=== PATIENT | male | born 1960 | race Caucasian/White ===

== ENCOUNTER → 2016-11-17 | Outpatient (CLI) | payer OTHER ==
[2016-11-17 13:40] LABS: BASO % 0.3 %; BASO ABS # 0.02 K/uL (0-0.2); COMPLETE YES; EOS % 0.7 %; IG% 0.3 %; LYMPH % 25.9 %; LYMPH ABS # 1.81 K/uL (1.2-3.4); MEAN CELL VOLUME 86.6 fL (80-100); MEAN CORPUSCULAR HEMOGLOBIN 30.3 pg (25-34); MEAN PLATELET VOLUME 10.8 fL (7.4-10.4); MONO % 5.6 %; NEUT % 67.2 %; PLATELET COUNT 174 K/uL (130-400); RED BLOOD COUNT 5.08 M/uL (4.7-6.1)
[2016-11-17 13:57] LABS: CHOLESTEROL/HDL RATIO 3.3; PROSTATE SPECIFIC ANTIGEN 1.06 ng/ml (0.000-4.000)
== END | disposition home or self-care (01) ==
LOC: C.LABBC 11:38
PROVIDERS: ATTEND Internal Medicine
DX: H61.23 Impacted cerumen, bilateral (principal)

== ENCOUNTER → 2017-05-13 | Outpatient (CLI) | payer OTHER ==
[2017-05-13 13:31] LABS: BASO % 0.4 %; BASO ABS # 0.02 K/uL (0-0.2); COMPLETE YES; EOS % 1.9 %; HEMATOCRIT 43.7 % (42-52); IG% 0.2 %; LYMPH % 32.3 %; LYMPH ABS # 1.73 K/uL (1.2-3.4); MEAN CELL VOLUME 87.2 fL (80-100); MEAN CORPUSCULAR HEMOGLOBIN 30.1 pg (25-34); MEAN CORPUSCULAR HGB CONC 34.6 g/dl (32-36); MEAN PLATELET VOLUME 10.9 fL (7.4-10.4); MONO % 7.5 %; NEUT % 57.7 %; PLATELET COUNT 164 K/uL (130-400); RED BLOOD COUNT 5.01 M/uL (4.7-6.1); WHITE BLOOD COUNT 5.36 K/uL (4.8-10.8)
[2017-05-13 13:46] LABS: CHOLESTEROL/HDL RATIO 3.5
[2017-05-13 14:40] LABS: ESTIMATED AVERAGE GLUCOSE 120 mg/dl; HA1C FLAG Normal (Normal)
== END | disposition home or self-care (01) ==
LOC: C.LABBC 11:09
PROVIDERS: ATTEND Internal Medicine
DX: E78.00 Pure hypercholesterolemia, unspecified (principal)

== ENCOUNTER → 2017-11-24 | Outpatient (CLI) | payer OTHER ==
[2017-11-24 13:35] LABS: BASO % 0.2 %; BASO ABS # 0.01 K/uL (0-0.2); EOS % 1.6 %; HEMOGLOBIN 15.7 g/dL (14.0-18.0); IG# 0.01 K/uL (0.00-0.02); LYMPH % 29.9 %; LYMPH ABS # 1.89 K/uL (1.2-3.4); MEAN CELL VOLUME 87.7 fL (80-100); MEAN CORPUSCULAR HEMOGLOBIN 30.6 pg (25-34); MEAN CORPUSCULAR HGB CONC 34.9 g/dl (32-36); MEAN PLATELET VOLUME 10.8 fL (7.4-10.4); MONO % 10.3 %; MONO ABS # 0.65 K/uL (0.11-0.59); NEUT % 57.8 %; NEUT ABS # 3.66 K/uL (1.4-6.5); PLATELET COUNT 184 K/uL (130-400); RED CELL DISTRIBUTION WIDTH CV 12.8 % (11.5-14.5); RED CELL DISTRIBUTION WIDTH SD 41.3 fL (36.4-46.3); WHITE BLOOD COUNT 6.32 K/uL (4.8-10.8)
[2017-11-24 14:03] LABS: HEMOGLOBIN A1C 5.9 % (4.5-5.6)
[2017-11-24 14:27] LABS: ALT/SGPT 49 U/L (12-78); AST/SGOT 39 U/L (15-37); BLOOD UREA NITROGEN 25 mg/dl (7-18); CALCIUM 8.7 mg/dl (8.5-10.1); CARBON DIOXIDE 27 mmol/L (21-32); GLUCOSE 95 mg/dl (70-99); POTASSIUM 4.5 mmol/L (3.5-5.1); SODIUM 137 mmol/L (136-145)
[2017-11-24 14:30] LABS: CHOLESTEROL 190 mg/dl (0-200); LDL CHOLESTEROL CALCULATED 122 mg/dl
== END | disposition home or self-care (01) ==
LOC: C.LABBC 09:48
PROVIDERS: ATTEND Internal Medicine
DX: E78.00 Pure hypercholesterolemia, unspecified (principal)

== ENCOUNTER → 2018-02-28 | Outpatient (CLI) | payer OTHER | END | disposition home or self-care (01) | LOC: C.LABBC 10:15 | PROVIDERS: ATTEND Internal Medicine | DX: R97.20 Elevated prostate specific antigen [PSA] (principal) ==

== ENCOUNTER → 2018-05-24 | Outpatient (CLI) | payer OTHER ==
[2018-05-24 12:54] LABS: BASO % 0.2 %; BASO ABS # 0.01 K/uL (0-0.2); EOS % 1.1 %; EOS ABS # 0.05 K/uL (0-0.5); HEMATOCRIT 43.5 % (42-52); IG# 0.01 K/uL (0.00-0.02); LYMPH % 35.7 %; LYMPH ABS # 1.64 K/uL (1.2-3.4); MEAN CELL VOLUME 87.3 fL (80-100); MEAN CORPUSCULAR HEMOGLOBIN 30.1 pg (25-34); MEAN CORPUSCULAR HGB CONC 34.5 g/dl (32-36); MEAN PLATELET VOLUME 10.9 fL (7.4-10.4); MONO % 5.2 %; MONO ABS # 0.24 K/uL (0.11-0.59); NEUT % 57.6 %; NEUT ABS # 2.64 K/uL (1.4-6.5); PLATELET COUNT 177 K/uL (130-400); RED CELL DISTRIBUTION WIDTH CV 12.5 % (11.5-14.5); RED CELL DISTRIBUTION WIDTH SD 40.3 fL (36.4-46.3); WHITE BLOOD COUNT 4.59 K/uL (4.8-10.8)
[2018-05-24 13:34] LABS: HEMOGLOBIN A1C 5.9 % (4.5-5.6)
[2018-05-24 13:36] LABS: ALT/SGPT 43 U/L (12-78); AST/SGOT 36 U/L (15-37); BLOOD UREA NITROGEN 35 mg/dl (7-18); CALCIUM 9.1 mg/dl (8.5-10.1); CARBON DIOXIDE 25 mmol/L (21-32); CHOLESTEROL 176 mg/dl (0-200); CREATININE 1.14 mg/dl (0.60-1.40); GLUCOSE 84 mg/dl (70-99); LDL CHOLESTEROL CALCULATED 109 mg/dl; POTASSIUM 4.4 mmol/L (3.5-5.1); SODIUM 142 mmol/L (136-145)
== END | disposition home or self-care (01) ==
LOC: C.LABBC 11:17
PROVIDERS: ATTEND Internal Medicine
DX: E78.00 Pure hypercholesterolemia, unspecified (principal)

== ENCOUNTER 2021-07-01 10:48 | Observation (INO) ==
[2021-07-01 11:32] LABS: Basophils # (auto) 0.01 K/uL (0-0.2); Basophils % (auto) 0.2 %; Eosinophils # (auto) 0.08 K/uL (0-0.5); Eosinophils % (auto) 1.4 %; Hematocrit (blood only) 45.4 % (42-52); Hemoglobin 15.3 g/dL (14.0-18.0); Immature Granulocytes # (auto) 0.02 K/uL (0.00-0.02); Immature Granulocytes % (auto) 0.3 %; Lymphocytes # (auto) 1.75 K/uL (1.2-3.4); Lymphocytes % (auto) 30.3 %; Mean Corpuscular Hemoglobin 29.8 pg (25-34); Mean Corpuscular Hgb Conc 33.7 g/dL (32-36); Mean Corpuscular Volume 88.3 fL (80-100); Mean Platelet Volume 10.3 fL (7.4-10.4); Monocytes # (auto) 0.35 K/uL (0.11-0.59); Monocytes % (auto) 6.1 %; Neutrophils # (auto) 3.56 K/uL (1.4-6.5); Neutrophils % (auto) 61.7 %; Platelet Count 204 K/uL (130-400); RDW Coefficient of Variation 12.6 % (11.5-14.5); RDW Standard Deviation 40.1 fL (36.4-46.3); Red Blood Count 5.14 M/uL (4.7-6.1); White Blood Count 5.77 K/uL (4.8-10.8)
[2021-07-01 11:43] LABS: Partial Thromboplastin Ratio 1.1; Partial Thromboplastin Time 28.2 Seconds (21.0-31.0); Prothrombin Time 10.5 Seconds (9.0-12.0)
[2021-07-01 11:53] LABS: Alanine Aminotransferase 47 U/L (12-78); Albumin Level 3.7 gm/dl (3.4-5.0); Aspartate Aminotransferase 28 U/L (15-37); BUN Creatinine Ratio 14.4 (10-20); Blood Urea Nitrogen 16 mg/dl (7-18); Carbon Dioxide 28 mmol/L (21-32); Chloride 110 mmol/L (98-107); Creatinine Clr Calc Pharmacy 97.8 ml/min; Est GFR (African American) 83.5 ml/min; Est GFR (Non-African American) 72.1 ml/min; Glucose 104 mg/dl (70-99); Potassium 4.4 mmol/L (3.5-5.1); Sodium 141 mmol/L (136-145)
[2021-07-01 11:58] LABS: Alkaline Phosphatase 86 U/L (45-117); Bilirubin,Total 0.9 mg/dl (0.2-1); Globulin 3.7 gm/dl (2.5-4.0); Total Protein 7.4 gm/dl (6.4-8.2); Troponin I < 0.015 ng/ml (0-0.045)
--- NOTE | 2021-07-01 12:32 | Emergency Department Note ---
Impression & Plan Unstable angina pectoris, Atypical chest pain ED Provider Note Provider: Rasta Zhao MD DATE OF SERVICE: 07/01/2021 CHIEF COMPLAINT: Exertional chest pain, EKG changes HISTORY OF PRESENT ILLNESS: Patient is a 60-year-old of hyperlipidemia on Lipitor presenting today referred from the physicians group office for exertional chest pain and EKG changes. Patient evidently has been experiencing a an odd sensation in his chest with some slight dizziness and arm heaviness when he is been having activity. States is not complaint of pain. Denies any radiation to the jaw or any abdominal issues. Reports that this started when he was jogging at a stop and his symptoms resolved. Reporting now that every time he exercises even with some strenuous walking he variances this sensation. Den ies a personal history of heart disease. Reports that he had an EKG done at the outpatient office and it was abnormal and was sent here for further evaluation. reports that he is even getting winded going up the stairs now and he seemed more sweaty than normal and a bit pale when this happened. No syncope is reported. Symptoms have resolved and again resolved with rest. Patient does not take aspirin daily. No leg swelling reported. REVIEW OF SYSTEMS: A total of 10 review of systems was obtained and negative except as stated above in the HPI. PAST MEDICAL HISTORY: As noted above MEDICATIONS: Reviewed home medications FMH: Family history of cardiac disease in father with a CABG around 60 years of age SOCIAL HISTORY: Non-smoker lives at home with PHYSICAL EXAM: GENERAL: alert and oriented in no acute distress on stretcher Head: normocephalic and atraumatic EYES: No injection, discharge or icterus. NECK: Trachea midline. Supple. LUNGS: Airway patent. No retractions. Breath sounds clear with good air entry bilaterally. HEART: Regular rate and rhythm. No chest wall tenderness ABDOMEN: Soft and non-tender, without guarding or rebound. SKIN: Acyanotic, warm, dry, without rashes EXTREMITIES: Without swelling, tenderness or deformity NEUROLOGICAL: No focal deficits. No aphasia. No facial droop or slurred speech. Ambulatory. EK bpm sinus bradycardia. Incomplete right bundle branch block. No acute ST segment elevation with some T wave inversions in V1 and V2. QTC 409. CONTINUOUS CARDIAC MONITORING: was ordered and showed a heart rate of 50s and 60s bpm in sinus rhythm and sinus bradycardia Patient's laboratory studies and imaging reviewed. Differential includes Cardiac ischemia, aortic dissection, pulmonary embolism, pneumothorax, pneumonia, pericarditis, myocarditis, esophageal rupture, GERD, cholecystitis, pancreatitis, musculoskeletal, as well as other pathologies. IMPRESSION/MEDICAL DECISION MAKING: Patient referred from the office due to exertional chest pain. No prior cardiac history reported. Does have some concerning history for anginal type pain. Not significant hypoxic or short of breath no issues at rest and lower suspicion for acute dissection or PE. Patient given some aspirin here. Not having chest pain at rest. Basic blood work was completed. No evidence of anemia. No severe electrolyte abnormality. No evidence of troponin elevation concerning for acute injury at this point. Given his starting story however Heart score 4. Discussed with cardiology Dr. Blanca further cardiac evaluation given the somewhat concerning history here. They are in agreement the plan for admission and will likely plan for a cardiac catheterization in the morning. Patient was given some aspirin here. Is pain-free at this time. Patient and are agreed with the plan and the hospitalist to be called. DIAGNOSIS: Exertional chest pain, unstable angina DISPOSITION: Hospitalist will evaluate Patient was agreeable with this plan. Past Med/Surg History Medical History (Updated 07/01/21 @ 13:32 by Rasta Zhao M.D.) Hearing loss of both ears Hypercholesterolemia Hyperglycemia Sensorineural hearing loss of both ears Tinnitus, bilateral Surgical History History of inguinal hernia repair, bilateral Social History Smoking Status: Never smoker Preferred Language: Micronesian Communication Ability: Effective Feels Safe at Home: Yes Physical Activity Frequency: 3-4 Times per Week Allergies Allergies Allergy/AdvReac Type Severity Reaction Status Date / Time No Known Allergies Allergy Verified 07/01/21 13:56 Home Meds Home Medications Medication Instructions Recorded Confirmed multivitamin 1 tab PO QAM 07/01/21 07/01/21 Previous Rx's Medication Instructions Recorded atorvastatin 80 mg tablet 80 mg PO DAILY #90 tab 07/16/20 Results & Data (ED) Vital Signs Vital Signs - 24 hr 07/01/21 11:08 07/01/21 11:11 07/01/21 12:30 Temperature 36.6 C Temperature Source Temporal Artery Scan Pulse Rate 68 60 Pulse Rate from SpO2 Sensor 59 L Respiratory Rate 18 18 Respiratory Effort / Characteristics Non-Labored Respiratory Depth Normal Blood Pressure 149/87 H 148/83 H Blood Pressure Mean 107 104 Pulse Oximetry 96 98 Oxygen Delivery Method Room Air Room Air Room Air Sepsis Recent Fever Within 48 Hours No Sepsis New/Unexplained Change in Mental Status No Sepsis Action Taken by Nursing No Action Required Laboratory Data Result diagrams: 07/01/21 11:10 07/01/21 11:10 Lab Results 07/01/21 07/01/21 07/01/21 Range/Units 11:10 11:10 11:10 WBC 5.77 (4.8-10.8) K/uL RBC 5.14 (4.7-6.1) M/uL Hgb 15.3 (14.0-18.0) g/dL Hct 45.4 (42-52) % MCV 88.3 (80-100) fL MCH 29.8 (25-34) pg MCHC 33.7 (32-36) g/dL RDW Std Deviation 40.1 (36.4-46.3) fL RDW Coeff of Carmen 12.6 (11.5-14.5) % Plt Count 204 (130-400) K/uL MPV 10.3 (7.4-10.4) fL Immature Gran % (Auto) 0.3 % Neut % (Auto) 61.7 % Lymph % (Auto) 30.3 % [place] % (Auto) 6.1 % Eos % (Auto) 1.4 % Baso % (Auto) 0.2 % Neut # (Auto) 3.56 (1.4-6.5) K/uL Lymph # (Auto) 1.75 (1.2-3.4) K/uL [place] # (Auto) 0.35 (0.11-0.59) K/uL Eos # (Auto) 0.08 (0-0.5) K/uL Baso # (Auto) 0.01 (0-0.2) K/uL Immature Gran # (Auto) 0.02 (0.00-0.02) K/uL PT 10.5 (9.0-12.0) Seconds INR 1.0 (0.9-1.1) APTT 28.2 (21.0-31.0) Seconds PTT Ratio 1.1 Sodium 141 (136-145) mmol/L Potassium 4.4 (3.5-5.1) mmol/L Chloride 110 H (98-107) mmol/L Carbon Dioxide 28 (21-32) mmol/L Anion Gap 3.0 (3-11) BUN 16 (7-18) mg/dl Creatinine 1.10 (0.6-1.4) mg/dl Est Cr Clr Drug Dosing 97.8 ml/min Est GFR ( Amer) 83.5 ml/min Est GFR (Non-Af Amer) 72.1 ml/min BUN/Creatinine Ratio 14.4 (10-20) Glucose 104 H (70-99) mg/dl Calcium 9.0 (8.5-10.1) mg/dl Total Bilirubin 0.9 (0.2-1) mg/dl AST 28 (15-37) U/L ALT 47 (12-78) U/L Alkaline Phosphatase 86 (45-117) U/L Troponin I < 0.015 (0-0.045) ng/ml Total Protein 7.4 (6.4-8.2) gm/dl Albumin 3.7 (3.4-5.0) gm/dl Globulin 3.7 (2.5-4.0) gm/dl Albumin/Globulin Ratio 1.0 (0.9-2) COVID-19 Eval Order 07/01/21 Range/Units 14:00 WBC (4.8-10.8) K/uL RBC (4.7-6.1) M/uL Hgb (14.0-18.0) g/dL Hct (42-52) % MCV (80-100) fL MCH (25-34) pg MCHC (32-36) g/dL RDW Std Deviation (36.4-46.3) fL RDW Coeff of Carmen (11.5-14.5) % Plt Count (130-400) K/uL MPV (7.4-10.4) fL Immature Gran % (Auto) % Neut % (Auto) % Lymph % (Auto) % [place] % (Auto) % Eos % (Auto) % Baso % (Auto) % Neut # (Auto) (1.4-6.5) K/uL Lymph # (Auto) (1.2-3.4) K/uL [place] # (Auto) (0.11-0.59) K/uL Eos # (Auto) (0-0.5) K/uL Baso # (Auto) (0-0.2) K/uL Immature Gran # (Auto) (0.00-0.02) K/uL PT (9.0-12.0) Seconds INR (0.9-1.1) APTT (21.0-31.0) Seconds PTT Ratio Sodium (136-145) mmol/L Potassium (3.5-5.1) mmol/L Chloride (98-107) mmol/L Carbon Dioxide (21-32) mmol/L Anion Gap (3-11) BUN (7-18) mg/dl Creatinine (0.6-1.4) mg/dl Est Cr Clr Drug Dosing ml/min Est GFR ( Amer) ml/min Est GFR (Non-Af Amer) ml/min BUN/Creatinine Ratio (10-20) Glucose (70-99) mg/dl Calcium (8.5-10.1) mg/dl Total Bilirubin (0.2-1) mg/dl AST (15-37) U/L ALT (12-78) U/L Alkaline Phosphatase (45-117) U/L Troponin I (0-0.045) ng/ml Total Protein (6.4-8.2) gm/dl Albumin (3.4-5.0) gm/dl Globulin (2.5-4.0) gm/dl Albumin/Globulin Ratio (0.9-2) COVID-19 Eval Order Covid19 at [facility] Administered Medications Discontinued Medications Aspirin (Aspirin 81 Mg Chew) 324 mg PO NOW STA Stop: 07/01/21 12:51 Last Admin: 07/01/21 13:12 Dose: 324 mg Documented by: [id number] Imaging Data Radiologist's Impression: Chest X-Ray 07/01/21 11:20 XR chest 1V portable INDICATION: MN ^Chest Pain . TECHNIQUE: Single frontal radiograph of the chest was obtained. Comparison: None available at the time of this dictation. FINDINGS: No lines and tubes are seen. The cardiomediastinal silhouette is normal. The lungs are clear. No evidence of pleural effusion or pneumothorax. IMPRESSION: No acute chest disease. ACT 112: Negative or not required by law. Electronically signed by: Moisés Segura M.D. 07/01/2021 1:43 PM Discharge Plan Visit Data Chief Complaint: Cardiac Assessment Stated Complaint: BAD EKG, SENT BY [facility] ED Provider: Rasta Zhao Discharge Problem: Unstable angina pectoris, Atypical chest pain Patient Disposition: Being Evaluated by Hospitalist Forms Stand Alone Forms: [facility]ook[facility] Prescriptions Prescriptions: No Action atorvastatin 80 mg tablet 80 mg PO DAILY Qty: 90 RF: 3 multivitamin Tablet 1 tab PO QAM RF: 0 Referrals Referrals: Ryan Jimenez MD [Primary Care Provider] -
[2021-07-01] MEDS ORDERED: ASPIRIN 81 MG CHEW PO STA (12:50)
--- NOTE | 2021-07-01 13:44 | XRay Report ---
XR chest 1V portable INDICATION: MN ^Chest Pain . TECHNIQUE: Single frontal radiograph of the chest was obtained. Comparison: None available at the time of this dictation. FINDINGS: No lines and tubes are seen. The cardiomediastinal silhouette is normal. The lungs are clear. No evid ence of pleural effusion or pneumothorax. IMPRESSION: No acute chest disease. ACT 112: Negative or not required by law. Electronically signed by: Moisés Segura M.D. 07/01/2021 1:43 PM
[2021-07-01] MEDS ORDERED: ACETAMINOPHEN 325 MG TAB PO PRN (15:06)
[2021-07-01] MEDS ORDERED: ONDANSETRON INJ 2 MG/ML 2 ML VIAL IV PRN (15:06)
[2021-07-01] MEDS ORDERED: NITROGLYCERIN SL 0.4 MG/TAB TAB SL PRN (15:06)
[2021-07-01] MEDS ORDERED: MoRPHine SULFATE 2 MG/ML CARP IV PRN (15:06)
[2021-07-01] MEDS ORDERED: MAGNESIUM HYDROXIDE SUSP 30 ML UDC PO PRN (15:06)
[2021-07-01] MEDS ORDERED: ALUMINUM/MAGNESIUM SUSP 30 ML UDC PO PRN (15:06)
[2021-07-01] MEDS ORDERED: ENOXAPARIN INJ 120 MG/0.8 ML SYR SQ ONE (15:30)
--- NOTE | 2021-07-01 15:37 | Electrocardiogram Report ---
Test Reason : Blood Pressure : / mmHG Vent. Rate : 056 BPM Atrial Rate : 056 BPM P-R Int : 188 ms QRS Dur : 116 ms QT Int : 424 ms P-R-T Axes : 014 017 042 degrees QTc Int : 409 ms Sinus bradycardia Incomplete right bundle branch block Borderline ECG No previous ECGs available Confirmed by Philippe Blanca ([id number]) on 07/01/2021 3:37:18 PM Referred By: Confirmed By:Philippe Blanca
[2021-07-01 16:09] LABS: D Dimer 390 ug/L FEU (0-500)
--- NOTE | 2021-07-01 16:28 | Cardiology Consultation ---
Date of Consultation July 01, 2021 Assessment & Plan (1) Angina pectoris, crescendo: -symptoms are classic for crescendo angina pectoris. -has not experienced symptoms at rest. -no need for stress testing. -proceed to cardiac catheterization tomorrow morning. (2) Hypercholesterolemia: -continue atorvastatin at 80 mg q.h.s.. History of Present Illness History of Present Illness Mr. Vickers is a 60-year-old male admitted earlier today with presumed crescendo angina pectoris. This consultation was ordered to assistance cardiac management. The patient was in his usual state of health until 2-3 months ago. On his daily walk/run, he began to notice air in his lungs as he exercised. His symptoms would resolve with rest. There were no other associated symptoms such as nausea, vomiting, or radiation of the discomfort. Approximately 1 week ago, the patient noticed his symptoms to progress. He began to notice the sensation as described with minimal physical exercise. He also noted concurrent diaphoresis and radiation of the sensation to his upper extremities. Again, his symptoms would resolve with rest. On the day prior to presentation, the patient notices symptoms when walking up a flight of stairs. He had to cut back his physical activity to an extreme degree. He has never experienced symptoms at rest. He was seen in his primary care office today with the above complaints. An EKG noted an incomplete right bundle branch block and the patient was sent to the emergency room for further care. The patient has never known of a cardiac event. He has never had a cardiac catheterization. Did have a normal stress echocardiogram approximately 8 years ago. Currently, patient is resting comfortably in bed without complaints. Past medical and surgical history 1. Hypercholesterolemia 2. Hyperglycemia 3. Hearing deficit 4. 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 Had CABG in his 60s. Mother is alive and well A brother has diabetes Review of systems A 10 review systems was undertaken and negative except that described above. Allergies Allergy/AdvReac Type Severity Reaction Status Date / Time No Known Allergies Allergy Verified 07/01/21 13:56 Home Medications Medication Instructions Recorded Confirmed Type atorvastatin 80 mg tablet 80 mg PO DAILY #90 tab 07/16/20 07/01/21 Rx multivitamin 1 tab PO QAM 07/01/21 07/01/21 History Patient History Medical History (Updated 07/01/21 @ 16:25 by Philippe Blanca MD) Hearing loss of both ears Hypercholesterolemia Hyperglycemia Sensorineural hearing loss of both ears Tinnitus, bilateral Surgical History History of inguinal hernia repair, bilateral Social History Smoking Status: Never smoker Preferred Language: Uzbek Communication Ability: Effective Feels Safe at Home: Yes Physical Activity Frequency: 3-4 Times per Week Physical Exam Physical Exam: In general this is a well-developed well-nourished white male in no acute distress. HEENT exam is negative. Neck is supple with full carotid upstrokes. There are no carotid bruits. Jugular venous pressure is flat at 90. There is no thyromegaly. Cardiovascular exam reveals a regular rhythm with a normal S1 and S2. No S3, S4, or murmurs are noted. Lungs are clear without rales, rhonchi, or wheezes. Abdomen is soft and nontender without bruits. Extremities reveal intact radial artery and posterior tibial pulses bilaterally. There is no peripheral edema. Results & Data ([facility]) Vital Signs (Past 12 Hours) Vital Signs Temp Pulse Resp BP Pulse Ox 07/01/21 12:30 60 18 148/83 H 98 07/01/21 11:08 36.6 C 68 18 149/87 H 96 Laboratory Results CBC notes hemoglobin 15.3, hematocrit 45.4, white count 5.77, and platelet count [id number]. Electrolytes note a sodium of 141, potassium 4.4, chloride 110, bicarb 20, BUN 16, creatinine 1.1, glucose of 104. Troponin I levels undetectable less than 0.015. Diagnostic Findings EKG notes normal sinus rhythm with an incomplete right bundle branch block. Chest x-ray shows no acute disease. PG Care Time/CCT Total # of Minutes Spent Total Time Spent with Patient: Total time spent is greater than 50% in coordination of care (as documented) at patient's floor/unit and/or counseling patient: Coding Level of Care Code 79866 Inpt Consult Level 5 Diagnoses Angina pectoris, crescendo I20.0 Hypercholesterolemia E78.00
--- NOTE | 2021-07-01 16:55 | History & Physical Report ---
Date of Service July 01, 2021 Assessment & Plan (1) Atypical chest pain: Plan: * Plan is for placement in observation to a cardiac monitored bed * Heart healthy diet. N.p.o. after midnight for planned cardiac catheterization * Out of bed for bathroom privileges only until ACS ruled out * Cycle cardiac enzymes * Aspirin, topical paste for vasodilation and continued statin therapy * Hold beta-blockade as heart rate in the low 60s. Likely would not tolerate * Lipid panel in a.m. for risk stratification * Avoid Plavix given plan for cardiac catheterization in the event patient would be found to need CABG * 1 dose of Lovenox now. Hold additional doses with plan for cardiac catheterization tomorrow * Echocardiogram to assess LV function * Cardiology on board. Appreciate recommendations * Add D-dimer. If positive, will obtain CTA * Add TSH (2) Hypercholesterolemia: Plan: * Continue Lipitor Plan: For cardiac catheterization tomorrow Plan of care discussed with Dr. Sanchez. History of Present Illness Chief Complaint: Exertional chest tingling X 2 months Primary Care Provider: Ryan Jimenez MD Mr. Vickers is a 60-year-old white male with an underlying past medical history of hyperlipidemia. He presented to the ED complaining of exertional chest "tingling" ongoing for approximately 2 to 3 months. Is active and runs/walks 3 miles a day. Noticed approximately 2 to 3 months ago that he was becoming more fatigued with running/walking these 3 miles. In addition, he was getting some discomfort in his chest that he described as "tingling" along with a very mild ache in his bilateral arms. Denied any substernal chest pain, or discomfort in his jaw. Symptoms would completely alleviate with rest. Over the past 2 to 3 months, seems as if symptoms are coming on with more limited exertion (such as walking). In addition, he is becoming more winded with limited exertion. D enies fevers, chills, cough, hemoptysis, palpitations, abdominal pain, nausea, vomiting, or swelling of his lower extremities. Symptoms completely resolved with rest. Pt is relatively healthy. He has had an exercise stress test approximately 10 years ago that was normal. He does have a family history of cardiac disease and reports that his father had four-vessel bypass in his 60s. Patient does not use tobacco products. Seen by his PCP initially who sent him to the ED for a "abnormal EKG". Presented to the ED where he was found to be hemodynamically stable. Lab data was unremarkable. His troponin was less than 0.015. His EKG here shows an incomplete right bundle branch but otherwise no acute ST/T wave changes. His chest x-ray shows no acute pathology. Covid test pending. Cardiology was notified and story highly suspicious for underlying cardiac disease. Plan is for cardiac catheterization tomorrow. Allergies Allergy/AdvReac Type Severity Reaction Status Date / Time No Known Allergies Allergy Verified 07/01/21 13:56 Home Medications Medication Instructions Recorded Confirmed Type atorvastatin 80 mg tablet 80 mg PO DAILY #90 tab 07/16/20 07/01/21 Rx multivitamin 1 tab PO QAM 07/01/21 07/01/21 History Past Med/Surg History Medical History Hearing loss of both ears Hypercholesterolemia Hyperglycemia Sensorineural hearing loss of both ears Tinnitus, bilateral Surgical History History of inguinal hernia repair, bilateral Social History Smoking Status: Never smoker Hx Alcohol Use: No Hx Substance Use: No Preferred Language: Polish Communication Ability: Effective Sample Driller Required: No Beliefs That Will Affect Care: None Current Living Situation: Spouse Other Information That Helps Us Care for You: No Feels Safe at Home: Yes Safety Concerns: Feels Safe At This Time Physical Activity Frequency: 3-4 Times per Week Assistive Devices: None Review of Systems Review of Systems: All systems reviewed and are unremarkable except as noted in HPI and below + Atypical chest pain with bilateral arm pain. Denies fevers, chills, headache, nasal congestion, sore throat, cough, shortness of breath, abdominal pain, nausea, vomiting, dysuria, hematuria, frequency, skin lesions or rashes. Physical Exam Physical Exam: General: Resting comfortably in his hospital bed. NAD. HEENT: Atraumatic, normocephalic. Buccal mucosa is moist and pink. Neck: No JVD. Negative hepatojugular reflex Cardiac: RRR without M/G/R Lungs: CTA without W/R/R Abdomen: Normoactive X4. Soft and nontender in all quadrants. Extremities: No peripheral clubbing cyanosis or edema Neuro: A&O X4 cranial nerves II through XII are grossly intact no focal neuro deficits Skin: No obvious skin lesions or rashes Results & Data Results & Data ([facility]) Vital Signs (Past 12 Hours) Vital Signs Temp Pulse Resp BP Pulse Ox 07/01/21 16:30 65 19 142/85 H 07/01/21 16:00 62 21 151/89 H 07/01/21 15:31 59 L 13 129/68 07/01/21 15:00 59 L 20 161/83 H 07/01/21 14:30 60 24 160/99 H 07/01/21 14:02 57 L 18 155/110 H 07/01/21 13:33 57 L 15 07/01/21 13:00 51 L 13 131/90 96 07/01/21 12:30 60 18 148/83 H 98 07/01/21 11:08 36.6 C 68 18 149/87 H 96 Laboratory Results 07/01/21 11:10 07/01/21 11:10 Troponin: Less than 0.015 Covid test: Pending EKG: Normal sinus rhythm. Rate 56 bpm. Normal axis. Incomplete right bundle branch block but no acute ST/T wave changes Code Status & VTE Plan VTE Prophylaxis Plan VTE Prophylaxis will be ordered: Yes Supervising Physician Co-Signing Physician Notes Discussed with NASEEM, reviewed her note above. This is a [id number]-year-old male who was typically physically active. Has been experiencing worsening dyspnea on exertion that has progressed. There is concern regarding possible unstable angina. Patient will be admitted to a monitored bed, trend cardiac enzymes. Cardiology already aware the patient with tentative plans to catheterize in the morning. PG Care Time/CCT Total # of Minutes Spent Total Time Spent with Patient: Total time spent is greater than 50% in coordination of care (as documented) at patient's floor/unit and/or counseling patient: [place] [address] Initial Inpt Care Lvl 2 Patient Type New Medical Decision Making Moderate Complexity Diagnoses Atypical chest pain R07.89 Hypercholesterolemia E78.00
[2021-07-01] MEDS: NITROGLYCERIN 2% OINTMENT 30GM TUBE EXT SCH (18:30)
[2021-07-01] MEDS: ATORVASTATIN 40 MG TAB PO SCH (20:37)
[2021-07-02] MEDS: NITROGLYCERIN 2% OINTMENT 30GM TUBE EXT SCH ×3 (00:13→12:00)
[2021-07-02 03:40] LABS: Chol HDL Ratio 4; Cholesterol 174 mg/dl (0-200); HDL Cholesterol 40 mg/dl; Triglycerides 434 mg/dl (0-150)
[2021-07-02] MEDS: ASPIRIN 81 MG ECTAB PO SCH (08:14)
--- NOTE | 2021-07-02 09:59 | XCELERA ---
[id number]
--- NOTE | 2021-07-02 10:45 | Cardiology Progress Note ---
Date of Service July 02, 2021 Assessment & Plan (1) Angina pectoris, crescendo: Plan: -symptoms are classic for angina pectoris. -no symptoms at rest. -cardiac catheterization today. (2) Hypercholesterolemia: Plan: -continue atorvastatin at 80 mg q.h.s.. Admission and Anticipated Discharge Date Admission Date: July 01, 2021 Subjective The patient is resting comfortably in bed without complaints of chest pain or dyspnea. Questions regarding his cardiac catheterization were answered in detail. Physical Exam Physical Exam: In general this is a well-developed well-nourished white male in no acute distress. HEENT exam is negative. Neck is supple with full carotid upstrokes. There are no carotid bruits. No JVD. There is no thyromegaly. Cardiovascular exam reveals a regular rhythm with a normal S1 and S2. No S3, S4, or murmurs are noted. Lungs are clear without rales, rhonchi, or wheezes. Abdomen is soft and nontender without bruits. Extremities reveal intact radial artery and posterior tibial pulses bilaterally. There is no peripheral edema. Results & Data ([facility]) Vital Signs (Past 12 Hours) Vital Signs Temp Pulse Pulse Resp BP Pulse Ox 07/02/21 07:53 36.6 C 55 L 18 127/73 95 07/02/21 04:21 36.7 C 54 L 17 129/67 93 07/02/21 00:27 36.6 C 18 132/75 95 07/02/21 00:00 49 L Laboratory Results Troponin I levels undetectable x3. 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 PG Care Time/CCT Total # of Minutes Spent Total Time Spent with Patient: Total time spent is greater than 50% in coordination of care (as documented) at patient's floor/unit and/or counseling patient: Coding Level of Care Code 53378 Subseq Hosp Care Lvl 3 Diagnoses Angina pectoris, crescendo I20.0 Hypercholesterolemia E78.00
[2021-07-02] MEDS ORDERED: niCARdipine HCL INJ 2.5 MG/ML 10 ML AMP ONE (15:21)
[2021-07-02] MEDS ORDERED: fentaNYL citrate 100 MCG/2 ML VIAL ONE (15:21)
[2021-07-02] MEDS ORDERED: MIDAZOLAM HCL 1 MG/ML 2ML VIAL ONE ×2 (15:21→16:13)
[2021-07-02] MEDS ORDERED: HEPARIN (PORCINE) 1000 UNIT/ML 10 ML (CATH LAB USE ONLY) ONE (15:22)
[2021-07-02] MEDS ORDERED: NITROGLYCERIN/D5W 100MCG/ML 20ML SYR ONE (15:22)
--- NOTE | 2021-07-02 15:28 | Pre Anesthesia Assessment ---
Date of Service July 02, 2021 Pre Sedation Assessment Vital Signs Temp Pulse Pulse Resp BP BP BP 07/02/21 15:15 53 L 16 158/90 H 07/02/21 11:54 52 L 18 147/87 H 07/02/21 08:00 49 L 07/02/21 07:53 36.6 C 55 L 18 127/73 07/02/21 04:21 36.7 C 54 L 17 129/67 07/02/21 00:27 36.6 C 18 132/75 07/02/21 00:00 49 L 07/01/21 19:31 36.8 C 54 L 18 153/87 H 07/01/21 17:20 36.7 C 58 L 58 L 16 144/92 H 07/01/21 17:00 58 L 18 148/91 H 07/01/21 16:30 65 19 142/85 H 07/01/21 16:00 62 21 151/89 H 07/01/21 15:31 59 L 13 129/68 Pulse Ox 07/02/21 15:15 98 07/02/21 11:54 96 07/02/21 08:00 07/02/21 07:53 95 07/02/21 04:21 93 07/02/21 00:27 95 07/02/21 00:00 07/01/21 19:31 96 07/01/21 17:20 96 07/01/21 17:00 07/01/21 16:30 07/01/21 16:00 07/01/21 15:31 Cardiovascular + bradycardic Respiratory normal respiratory effort, lungs clear to auscultation Pre-Sedation Airway Assessment Smoking Status: Never smoker Hx Sleep Apnea: No Short, Thick Neck: No Thyromental Distance: > or= 3.5 Finger Breadths Oral Cavity: + Capped Teeth Mallampati Class: I ASA: ASA3 NPO Status Date of Last Intake of Fluids: 07/01/21 Time of Last Intake of Fluids: 20:00 Date of Last Intake of Solid Food: 07/01/21 Time of Last Intake of Solid Foods: 20:00 Procedure Planning Contraindications for Sedation: none Current Medications Reviewed: Yes Notes The planned sedation has been discussed with the patient. Informed Consent was obtained. I have identified the patient, determined the appropriateness of sedation and have assessed the patient immediately prior to the procedure. All medicine(s) and interventions are by my order.
--- NOTE | 2021-07-02 16:25 | Cardiac Catheterization ---
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 Cardiac Status Clinical evaluation leading to the procedure CAD Presenation: Unstable angina Anginal Classification: CCS III Heart Failure: No Cardiogenic Shock within 24 Hours: No Cardiac Arrest within 24 Hours: No Imaging Studies Past 6 Months: Yes Stress Studies Past 6 Months: No Coronary Anatomy Dominant: Right Diagnostic Physicians Name: Glenroy Gold MD Status: Elective Closure Device Percutaneous Entry Location: Radial Closure Device: Radial Band Recommendations: PCI without planned CABG Cardiac Cath Procedure Full Procedure Date July 02, 2021 Pre-Procedure Diagnosis Pre-Procedure Diagnosis: Angina AUC Score AUC Score: 7 Post-Procedure Diagnosis Post-Procedure Diagnosis: Severe CAD and Normal Intracardiac Pressures Procedure(s) Performed Procedure(s) Performed: Coronary Angiography and Left Heart Cath Machine Ceramic Coater Glenroy Gold MD Academic Affairs Dean(s) Showers Estimated Blood Loss Estimated Blood Loss: < 25 ml Medication(s) Medication(s): Fentanyl, Heparin, Lidocaine 1%, Nicardipine and Versed Summary of Findings Procedures: 1. Coronary angiography 2. Left heart catheterization 3. Moderate sedation Indication: 60-year-old gentleman with history significant for dyslipidemia who presented with symptoms concerning for crescendo angina. He was referred for cardiac catheterization by Dr. Blanca. Coronary angiography: 1. Left main: No significant CAD within the left main coronary artery. 2. Left anterior descending: Proximal LAD 70 to 80% long stenotic area. Diagonal 1 and 2 without significant CAD. CHRIS-3 flow within the LAD. 3. Circumflex: Medium to large caliber vessel. Small high OM1. Large OM 2. No significant CAD within the circumflex system. 4. Right coronary artery: RCA is large and dominant. Mid RCA 20%. Distal RCA 30%. PDA and PL branches without significant CAD. Left heart catheterization: 1. Left ventriculography was not performed. 2. Top normal LVEDP; 14 mmHg. 3. No significant aortic stenosis. Moderate sedation: 1. Sedation start time: 3:40 PM 2. Sedation end time: 4:12 PM Impression: 1. Severe CAD involving proximal LAD. 2. Otherwise, mild nonobstructive CAD within the RCA. 3. Top normal left-sided filling pressure. 4. No aortic stenosis. Plan: 1. Dr. Lindsay of interventional cardiology was asked to review images and plans on performing PCI of proximal LAD. 2. Risk factor modification. Hemodynamics Rest Ao:: 124/68 Final Ao: 122/68 LV: 144/7/14 Recommendations Recommendations: PCI without planned CABG Specimens Specimens: None Radiation Exposure (mGy) 386 mGy. Fluoro time 3.5 min. Contrast (mls) 60 ml Procedural Complication(s) None Disposition PCU I attest to the content of the Intraoperative Record and any orders documented therein. Any exceptions are noted below. [facility] Card Cath Procedure Codes Cardiac Catheterization Procedure 1: Cardiovascular Cath Procedures: 51205 Coronaries and LHC (+/-LV) Moderate Sedation Procedure 1: Sedation/Anesthesia: 46928 Mod Sedation by the same physician;Init15 Min C hild Age 5 & Up Procedure 2: Sedation/Anesthesia: 39098 Mod Sedation by the same physician; Ea [id number] Minutes PG Care Time/CCT Total # of Minutes Spent Total Time Spent with Patient: Total time spent is greater than 50% in coordination of care (as documented) at patient's floor/unit and/or counseling patient:
[2021-07-02] MEDS ORDERED: TICAGRELOR 90 MG TAB PO ONE (16:45)
--- NOTE | 2021-07-02 17:26 | Post Anesthesia Assessment ---
Date of Service July 02, 2021 Post Sedation Assessment Vital Signs Temp Pulse Pulse Resp BP Pulse Ox 07/02/21 15:15 53 L 16 158/90 H 98 07/02/21 11:54 52 L 18 147/87 H 96 07/02/21 08:00 49 L 07/02/21 07:53 97.9 F 55 L 18 127/73 95 07/02/21 04:21 98.1 F 54 L 17 129/67 93 07/02/21 00:27 97.9 F 18 132/75 95 07/02/21 00:00 49 L 07/01/21 19:31 98.2 F 54 L 18 153/87 H 96 Recovery Score Activity: Moves 4 extremities Respiration: Deep Breath/Cough Circulation: +/-20% PreAnes Value Consciousness: Fully Awake Oxygen Saturation: O2 needed for >90% Discharge Sedation Level of Care: Fast Track Phase II Post Sedation Plan On clinical assessment, the patient appears to have tolerated the sedation without complications. Patient is recovering as anticipated. Patient will continue to be monitored by nursing and may be discharged when sedation discharge criteria are met per below protocol. Upon Completions of procedure up to 15 minutes continue every 5 minute vital signs and the P.A.R. score; then discharge to a Phase I or Fast Track to Phase II per the following guidelines: * Discharge Patient to appropriate Phase II area if PAR is 8 or greater or return to pre- procedure baseline. The post - procedure orders will be as directed. * If PAR score is less than 8 or not return to pre-procedure baseline then patient will follow Phase I monitoring till PAR is reached for Phase II. The Phase I may be done in procedure room or may call to secure a Phase I area. * If naloxone or flumazenil are used for reversal, hold in Phase I for continue d monitoring from when last reversal dose was given for a minimum of 60 minutes or longer pending the nurse and/or physician discretion of patient condition before discharge to Phase II. Please call the Sedation Physician to re-evaluate and complete post-note for discharge to Phase II area. Do NOT discharge from procedure sedation or Phase 1 until post- sedation evaluation note is complete by procedure /sedation MD Sedation Discharge Instructions to be given to the patient at discharge to home.
[2021-07-02] MEDS ORDERED: SODIUM CHLORIDE 0.9% 1000ML 1,000 ML IV SCH (17:30)
--- NOTE | 2021-07-02 17:43 | Cardiac Catheterization ---
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: German Tutor Cardiac Status Clinical evaluation leading to the procedure CAD Presenation: Unstable angina Anginal Classification: CCS IV Heart Failure: No Cardiogenic Shock within 24 Hours: No Cardiac Arrest within 24 Hours: No Imaging Studies Past 6 Months: Yes Stress Studies Past 6 Months: No Diagnostic Physicians Name: Watson Lindsay MD Status: Elective Closure Device Percutaneous Entry Location: Radial Closure Device: Radial Band Recommendations: PCI without planned CABG PCI Indication: Unstable Angina Lesion Segment Name: Proximal LAD Culprit Artery: Yes Stenosis Prior to Rx (%): 80 Chronic Total Occlusion: No IVUS: Yes FFR: No Pre-Procedure CHRIS Flow: 2 Previously Treated Lesion: No Lesion Complexity: Non-High/Non-C Lesion Length (mm): 12 Thrombus Present: Yes Bifurcation Lesion: No Guidewire Across Lesion: Stenosis Post-Procedure (%): 0 Post-Procedure CHRIS Flow: 3 Devices(s) Deployed: Yes Yes Intraprocedure Events Significant Disection: No Perforation: No Cardiac Cath Procedure Full Procedure Date July 02, 2021 Pre-Procedure Diagnosis Pre-Procedure Diagnosis: Angina AUC Score AUC Score: 7 Post-Procedure Diagnosis Post-Procedure Diagnosis: Severe CAD and Successful PCI Procedure(s) Performed Procedure(s) Performed: Coronary Angiography, Drug Eluting Stent and IVUS Security Clerk Watson Lindsay MD Design Engineer Products(s) Showers Estimated Blood Loss Estimated Blood Loss: < 25 ml Medication(s) Medication(s): Fentanyl, Heparin, Lidocaine 1%, Nicardipine and Versed Medication(s): Ticagrelor Summary of Findings Indication: Unstable angina Access: 6 Fr right radial artery Catheters: EBU 3.5 guide Findings: For full details of patient's coronary angiography please see cath report dictated by Dr. Gold. Briefly, patient found to have severe single vessel disease with an acute appearing 80% proximal LAD stenosis. Decision to proceed with PCI. -- PCI -- Antithrombotic therapy: Heparin, ticagrelor Procedure: Left main cannulated with EBU 3.5 guide BMW wire passed across lesion into distal vessel [place] IVUS catheter placed into mid LAD. Pullback revealed moderate diffuse mid LAD disease. Severe, >80% stenosis with thrombus/unstable plaque extending almost to the ostium. Minimal disease in left main. Proximal ID stented with 3.0 x 15 mm Xience Kari drug-eluting stent Stent post-dilated with 4.0 noncompliant balloon IC vasodilators administered for spasm Repeat IVUS pullback revealed well expanded, well apposed stent with no apparent edge complications. Post procedure CHRIS 3 flow, stent well expanded with minimal residual stenosis and no apparent cardiac complications. Arterial Closure: TR band Summary: 1. Successful PCI of proximal LAD with single drug-eluting stent (3.0 x 15 mm Xience; postdilated with 4.0 NC). Recommendations: To PCU for continued monitoring Loaded with ticagrelor 180 mg in German Tutor Continue dual-antiplatelet therapy for at least 1 year Continue statin, and ASCVD risk factor modification Consult cardiac Rehab Hemodynamics Rest Ao:: 136/78/103 Final Ao: 126/77/100 LV: -- Recommendations Recommendations: PCI without planned CABG Specimens Specimens: None Radiation Exposure (mGy) 1480 Contrast (mls) 140 Fluids (cc crystalloids) Fluids (cc crystalloids): 90 Drains Drains: None Anesthesia Moderate 9254-9240 Procedural Complication(s) None Disposition PCU I attest to the content of the Intraoperative Record and any orders documented therein. Any exceptions are noted below. [facility] Card Cath Procedure Codes Therapeutic Services & Ancillary Proc Procedure 1: Cardiovascular Tx and Anc Procedures: 06566 IV Ultrasound (Coronary or Graft) Moderate Sedation Procedure 1: Sedation/Anesthesia: 06577 Mod Sedation by the same physician; Ea [id number] Minutes Stenting Procedure 1: Cardiovascular Stent Procedures: 22565 Perc transcatheter placement of intracoronary stent(s), with ang PG Care Time/CCT Total # of Minutes Spent Total Time Spent with Patient: Total time spent is greater than 50% in coordination of care (as documented) at patient's floor/unit and/or counseling patient:
--- NOTE | 2021-07-02 18:29 | Hospitalist Progress Note ---
Date of Service July 02, 2021 Assessment & Plan (1) Angina pectoris, crescendo: Plan: * Patient underwent cardiac catheterization today revealing 80% stenosis of the LAD. He is s/p PRADO stent * Continue aspirin. Brilinta added. * Continue Lipitor * Lengthy discussion with patient and regarding risk factor modifications * Plan for hopeful discharge tomorrow (2) CAD (coronary artery disease): Plan: * See above (3) Hypercholesterolemia: Plan: * Continue high intensity statin * Add TriCor for elevated triglyceride level Admission and Anticipated Discharge Date Admission Date: July 01, 2021 Subjective Patient seen on daily rounds today. Feeling well. Seen prior to cardiac catheterization. Has been mostly sitting in a chair and getting up only to use the bathroom and denies any symptoms including chest pain, shortness of breath, palpitations, diaphoresis, nausea or vomiting. Troponin has cycled and patient has ruled out for acute coronary syndrome. Patient has since had a cardiac catheterization showing that he had an 80% stenotic LAD resulting in a drug-eluting stent Echocardiogram done showing EF of 60 to 65% without significant valvular disease. Review of Systems Review of Systems: All systems reviewed and are unremarkable except as noted in HPI and below Denies fevers, chills, headache, nasal congestion, sore throat, cough, chest pain, shortness of breath, palpitations, orthopnea, PND, abdominal pain, nausea, vomiting, diarrhea, constipation, dysuria, hematuria, frequency, back pain, joint pain or swelling, easy bruising or blooding, skin lesions or rashes. Physical Exam Physical Exam: General: Resting comfortably in his hospital bed. NAD. HEENT: Head is AT/NC buccal mucosa is moist and pink Neck: No JVD. Negative hepatojugular reflex Cardiac: RRR without M/G/R Lungs: CTA without W/R/R Abdomen: Normoactive X4. Soft and nontender in all quadrants. Extremities: No peripheral clubbing cyanosis or edema Neuro: A&O X4 cranial nerves II through XII are grossly intact no focal neuro deficits Skin: No obvious skin lesions or rashes Psych: Appropriate affect pleasant and cooperative Results & Data Results & Data ([facility]) Vital Signs (Past 12 Hours) Vital Signs Temp Pulse Pulse Resp BP Pulse Ox 07/02/21 17:45 61 18 129/97 95 07/02/21 17:30 53 L 16 143/94 H 97 07/02/21 16:00 49 L 07/02/21 15:15 53 L 16 158/90 H 98 07/02/21 11:54 52 L 18 147/87 H 96 07/02/21 08:00 49 L 07/02/21 07:53 36.6 C 55 L 18 127/73 95 Laboratory Results 07/01/21 11:10 07/01/21 11:10 Triglycerides: 434 Cholesterol: 174 LDL not reported HDL 40 EKG showing no acute changes cardiovascular sonographer: No acute ST/T wave changes PG Care Time/CCT Total # of Minutes Spent Total Time Spent with Patient: Total time spent is greater than 50% in coordination of care (as documented) at patient's floor/unit and/or counseling patient: [place] [address] Subseq Hosp Care Lvl 3 Patient Type Established History Detailed Exam Detailed Medical Decision Making Moderate Complexity Diagnoses Angina pectoris, crescendo I20.0 CAD (coronary artery disease) I25.10 Hypercholesterolemia E78.00
[2021-07-02] MEDS: ATORVASTATIN 40 MG TAB PO SCH (20:29)
--- NOTE | 2021-07-03 08:06 | Electrocardiogram Report ---
Test Reason : Blood Pressure : / mmHG Vent. Rate : 052 BPM Atrial Rate : 052 BPM P-R Int : 206 ms QRS Dur : 112 ms QT Int : 448 ms P-R-T Axes : 026 008 023 degrees QTc Int : 416 ms Sinus bradycardia Incomplete right bundle branch block Borderline ECG When compared with ECG of 01-JUL-2021 11:15, No significant change was found Confirmed by Glenroy Gold ([id number]) on 07/03/2021 8:06:25 AM Referred By: REFERRED SELF Confirmed By:Glenroy Gold
[2021-07-03] MEDS ORDERED: FENOFIBRATE NANOCRYSTALLIZED 145 MG TABLET PO SCH (09:00)
[2021-07-03] MEDS ORDERED: TICAGRELOR 90 MG TAB PO SCH (09:00)
[2021-07-03] MEDS: ASPIRIN 81 MG ECTAB PO SCH (09:22)
--- NOTE | 2021-07-03 09:52 | Electrocardiogram Report ---
Test Reason : Blood Pressure : / mmHG Vent. Rate : 050 BPM Atrial Rate : 050 BPM P-R Int : 204 ms QRS Dur : 116 ms QT Int : 460 ms P-R-T Axes : 017 029 040 degrees QTc Int : 419 ms Sinus bradycardia with sinus arrhythmia Incomplete right bundle branch block Borderline ECG When compared with ECG of 02-JUL-2021 12:37, (unconfirmed) No significant change was found Confirmed by Philippe Blanca ([id number]) on 07/03/2021 9:52:14 AM Referred By: REFERRED SELF Confirmed By:Philippe Blanca
--- NOTE | 2021-07-03 12:47 | Cardiology Progress Note ---
Date of Service July 03, 2021 Assessment & Plan (1) CAD (coronary artery disease): Plan: -80% proximal LAD stenosis at time of diagnostic catheterization. -20% mRCA, 30% dRCA also identified -3 x 15 mm Xience deployed in the proximal LAD lesion. -aspirin and Brilinta for least 1 year. -follow-up with me in 1-2 weeks. (2) Hypercholesterolemia: Plan: -continue atorvastatin at 80 mg q.h.s.. Admission and Anticipated Discharge Date Admission Date: July 01, 2021 Subjective The patient is resting comfortably in bed without complaints of chest pain or dyspnea. We have reviewed the results of his cardiac catheterization and intervention. He is anxious for hospital discharge. Physical Exam Physical Exam: In general this is a well-developed well-nourished white male in no acute distress. HEENT exam is negative. Neck is supple with full carotid upstrokes. There are no carotid bruits. No JVD. There is no thyromegaly. Cardiovascular exam reveals a regular rhythm with a normal S1 and S2. No S3, S4, or murmurs are noted. Lungs are clear without rales, rhonchi, or wheezes. Abdomen is soft and nontender without bruits. Extremities reveal intact radial artery and posterior tibial pulses bilaterally. Dry dressing on the right wrist. No bruits. There is no peripheral edema. Results & Data ([facility]) Vital Signs (Past 12 Hours) Vital Signs Temp Pulse Pulse Resp BP BP Pulse Ox 07/03/21 12:10 36.6 C 59 L 18 152/92 H 96 07/03/21 12:06 59 L 18 152/92 H 96 07/03/21 12:05 58 L 19 152/92 H 07/03/21 09:25 65 17 146/93 H 94 07/03/21 09:00 36.6 C 07/03/21 08:00 57 L Diagnostic Findings composite assembler is benign. PG Care Time/CCT Total # of Minutes Spent Total Time Spent with Patient: Total time spent is greater than 50% in coordination of care (as documented) at patient's floor/unit and/or counseling patient: Coding Level of Care Code 00707 Subseq Hosp Care Lvl 3 Diagnoses Hypercholesterolemia E78.00 CAD (coronary artery disease) I25.10
--- NOTE | 2021-07-07 08:31 | Discharge Summary ---
Date of Service July 03, 2021 Admission HPI Per Admitting Provider Mr. Vickers is a 60-year-old white male with an underlying past medical history of hyperlipidemia. He presented to the ED complaining of exertional chest "tingling" ongoing for approximately 2 to 3 months. Is active and runs/walks 3 miles a day. Noticed approximately 2 to 3 months ago that he was becoming more fatigued with running/walking these 3 miles. In addition, he was getting some discomfort in his chest that he described as "tingling" along with a very mild ache in his bilateral arms. Denied any substernal chest pain, or discomfort in his jaw. Symptoms would completely alleviate with rest. Over the past 2 to 3 months, seems as if symptoms are coming on with more limited exertion (such as walking). In addition, he is becoming more winded with limited exertion. Denies fevers, chills, cough, hemoptysis, palpitations, abdominal pain, nausea, vomiting, or swelling of his lower extremities. Symptoms completely resolved with rest. Pt is relatively healthy. He has had an exercise stress test approximately 10 years ago that was normal. He does have a family history of cardiac disease and reports that his father had four-vessel bypass in his 60s. Patient does not use tobacco products. Seen by his PCP initially who sent him to the ED for a "abnormal EKG". Presented to the ED where he was found to be hemodynamically stable. Lab data was unremarkable. His troponin was less than 0.015. His EKG here shows an incomplete right bundle branch but otherwise no acute ST/T wave changes. His chest x-ray shows no acute pathology. Covid test pending. Cardiology was notified and story highly suspicious for underlying cardiac disease. Plan is for cardiac catheterization tomorrow. Principal Diagnosis Angina CAD s/p coronary stent to the LAD Discharge Exam General: well developed, well nourished, no acute distress, comfortable Neck: supple, trachea midline, normal thyroid Lungs: clear to auscultation bilaterally, normal respiratory effort, no accessory muscle use, no distress Heart: regular S1 and S2, no murmur, peripheral pulses normal, capillary refill normal, no edema Abdomen: soft, NT, ND, + BS, no hepatomegaly, normal to percussion Extremities: normal in appearance, no cyanosis, no petechiae, strength is 5/5 bilaterally Neuro: awake, cooperative, moves all extremities, no focal motor deficits, CN II-XII intact, sensation in extremities intact, normal speech Skin: warm, dry, no rash, normal turgor Psych: Awake, alert oriented x 3, euthymic affect Discharge Data Allergies Allergy/AdvReac Type Severity Reaction Status Date / Time No Known Allergies Allergy Verified 07/01/21 13:56 Consultations 07/01/21 14:05 ED Decision to Admit Stat 07/01/21 15:06 Consult Cardiology Routine 07/02/21 17:28 Consult Cardiac Rehabilitation Routine Procedures Performed Operation Date: 07/02/21 12:00 Actual Procedures p Cath, Left with Cors and Vent - Glenroy Gold MD s Cineradiography w/Routine Exam - Glenroy Gold MD s Drug Eluting Stent SGl Vessel - Felix Lindsay MD s IVUS Coronary Single Vessel - Felix Lindsay MD Ordered Studies 07/02/21 07:13 CL Cath Imgs for PACS use only Routine 07/02/21 16:05 CL IVUS Coronary Single Vessel Routine Hospital Course (1) Angina pectoris, crescendo: * Patient underwent cardiac catheterization on 07/02 revealing 80% stenosis of the LAD, DONOVAN deployed successfully * Continue aspirin. Brilinta 90mg BID for one year, instructed to not stop until told to do so by cardiology * Continue Lipitor 80mg daily * Lengthy discussion with patient and regarding risk factor modifications follow up with cardiology HR too low for beta opal BP control in clinic, could add Lisinopril if needed long filler cigar roller machine (2) CAD (coronary artery disease): * See above (3) Hypercholesterolemia: * Continue high intensity statin * Add TriCor for elevated triglyceride level Total Time Total Time Spent Total Time Spent (In Minutes): 32 minutes Total Time Includes: Examination of the Patient, Discharge Planning, Medication Reconciliation and Communication With Other Providers Discharge Plan Discharge Items Patient Disposition: Home - Self-Care Reason For Visit: CHEST PAIN Discharge Diagnosis: 1. Angina 2. Coronary Artery Disease- s/p stent 3. 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 * No lifting over 2 pounds (approximately a 1/2 gallon of milk) with the utilized arm for 24 hours. * No strenuous activity such as bowling or tennis for 3 days. * Keep the site of the procedure covered with a bandage for 24 hours. *You may shower the day after the procedure. Do not take a tub bath or submerge the puncture site in water for the next 3 days. *Do not operate any motorized equipment for 3 days. SPECIAL CARE INSTRUCTIONS: The site may be slightly bruised and sore following your procedure. Should any of the following occur, contact the Dr. who performed your procedure. 1. Redness/inflammation, swelling, chills, or fever, or colored drainage at procedure site within 3-7 days after your procedure. 2. Coldness, discoloration, ongoing numbness, severe pain, or swelling. Expect mild tingling of hand and tenderness at the puncture site for up to three days. If this persists beyond three days, or other symptoms develop, notify the Dr. who performed your procedure. BLEEDING: If the procedure site on your wrist begins to bleed, do not panic 1. Place 1 or 2 fingers firmly just slightly above the insertion site to stop the bleeding. You may be able to feel your pulse as you hold pressure. 2. Lift your finger after 5 minutes to see if the bleeding has stopped. 3. Once the bleeding has stopped, gently wipe the wrist area clean with a bandage. * If the bleeding from your wrist does not stop after 10 minutes, or if there is a large amount of bleeding or spurting, call 911 (do not drive yourself to the hospital). SKIN IRRITATION: * You may experience some redness and/or swelling in the area where radiation was administered. If any skin irritation occurs, please contact your family physician. FOLLOW UP VISIT: Keep any scheduled doctor appointments. Note the addition of: - Brilinta 90mg twice a day (for a minimum of 12months as tolerated)-- at discretion of cardiology if the dose of this medication will be reduced in 12 months time - Tricor (to target triglycerides) - continue Lipitor - maintain low fat diet. Encouraged white meat/fish and a little red wine a day to help with your HDL (good cholesterol) Pending Studies at Discharge: No Stand-Alone Forms: My [facility] Medications and DC Order Prescriptions: New fenofibrate nanocrystallized 145 mg Tablet 145 mg PO QAM Qty: 30 RF: 0 nitroglycerin [Nitrostat] 0.4 mg Tablet, Sublingual 0.4 mg sublingual UD PRN (Reason: chest pain) Qty: 10 RF: 0 Brilinta 90 mg tablet 90 mg PO BID Qty: 60 RF: 0 Continued atorvastatin 80 mg tablet 80 mg PO DAILY Qty: 90 RF: 3 multivitamin Tablet 1 tab PO QAM RF: 0 Discharge Orders: Discharge Order (Routine); Ordered 07/03/21 Ordered By: Emily Patel/Other Patient Handouts: Coronary Stents, Exercise for a Healthier Heart, CAD, Eating Heart-Healthy Foods Admission Data Admit Date/Time: 07/01/21 15:07 Attending Provider: Moisés Smith Admit Provider: Chaitanya Sanchez Primary Care Provider: Ryan Jimenez Other Providers: Chaitanya Sanchez ; Philippe Blanca Other Interventions: Discharge Summary Assessment (RN) Last Done: 07/03/21 12:10 Coding Level of Care Code D/C DAY MANAGEMENT >30 MINS Diagnoses Angina pectoris, crescendo I20.0 CAD (coronary artery disease) I25.10 Hypercholesterolemia E78.00
== END 2021-07-03 12:36 | disposition home or self-care (01) ==
LOC: ED 10:48 → 1E 10:48 → SUATTDRO 15:07 → 1E 17:11